=== PATIENT | female | born 1985 | race Caucasian/White ===

== ENCOUNTER 2018-10-03 12:10 | Emergency (ER) | payer SELFPAY ==
--- NOTE | 2018-10-03 13:07 | EDPHYS ---
Physician Documentation [facility] Name: Jason Garcia Age: 33 yrs Sex: Female : 1985 Arrival Date: 10/03/2018 Time: 12:12 Bed 8 Private MD: ED Physician Sony Larios HPI: 10/03 12:57 This 33 yrs old Female presents to ER via Ambulatory with complaints of kdr Rash/Lesions. 12:57 The patient's rash thought to be caused by Dermatitis an unknown cause. The rash is kdr located on the occipital area, base of the skull, chest, right axilla and left axilla. The rash can be described as crusted, macular, papular. Onset: The symptoms/episode began/occurred gradually, 2 week(s) ago. Associated signs and symptoms: Pertinent positives: None. Pertinent negatives: burning sensation, difficulty breathing, fever, itching, nausea, Pain swelling of lips, swelling of throat, swelling of tongue, vomiting. Severity of symptoms: At their worst the symptoms were mild in the emergency department the symptoms are unchanged. The patient has not experienced similar symptoms in the past. The patient has not recently seen a physician. 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 - Social history:: Smoking status: unknown. - Ebola Screening: : No symptoms or risks identified at this time. ROS: 12:57 Constitutional: Negative for fever, chills, and weight loss, Eyes: Negative for injury, kdr pain, redness, and discharge, Neck: Negative for injury, pain, and swelling, Cardiovascular: Negative for chest pain, palpitations, and edema, Respiratory: Negative for shortness of breath, cough, wheezing, and pleuritic chest pain. 12:57 Skin: Positive for The patient has multiple lesions to posterior scalp and bilateral axilla. Since she got out of group home. She has no other issues or c/o. Exam: 12:57 Skin: Appearance: normal except for affected area, Color: pink, abscess, that is small, kdr multiple small lesions to posterior scalp.. 16:18 Constitutional: This is a well developed, well nourished patient who is awake, alert, kdr and in no acute distress. Head/Face: Normocephalic, atraumatic. Vital Signs: 12:13 BP 136 / 80; Pulse 100; Resp 16; Temp 98.2; Pulse Ox 97% on R/A; Weight 54.43 kg; aj Height 4 ft. 11 in. (149.86 cm); 12:13 Body Mass Index 24.24 (54.43 kg, 149.86 cm) MDM: 12:57 Data reviewed: vital signs, nurses notes. Counseling: I had a detailed discussion with kdr the patient and/or guardian regarding: the historical points, exam findings, and any diagnostic results supporting the discharge/admit diagnosis, the need for outpatient follow up. 13:06 Patient medically screened. kdr Administered Medications: No medications were administered Disposition: 10/03/18 13:06 Discharged to Home. Impression: Cellulitis of neck, Scalp cellulitis. - Condition is Stable. - Discharge Instructions: Cellulitis, Adult, [id number], MRSA FAQs - MIRZA. - Prescriptions for Keflex 500 mg Oral Capsule - take 1 capsule by ORAL route every 6 hours for 10 days; 40 capsule. - Medication Reconciliation Form, Thank You Letter, Antibiotic Education, Work release form form. - Follow up: Private Physician; When: 2 - 3 days; Reason: If symptoms return, Further diagnostic work-up, Recheck today's complaints, Continuance of care, Re-evaluation by your physician. - Problem is new. - Symptoms are unchanged. - Notes: Use bacterialcidal soap and shampoo until resovlved Signatures: Jillian Butcher RN RN sv Myers, Amanda RN Sony Jacobs MD MD kdr Corrections: (The following items were deleted from the chart) 13:30 13:06 10/03/2018 13:06 Discharged to Home. Impression: Cellulitis of neck; Scalp sv cellulitis. Condition is Stable. Forms are Medication Reconciliation Form, Thank You Letter, Antibiotic Education, Prescription Opioid Use. Follow up: Private Physician; When: 2 - 3 days; Reason: If symptoms return, Further diagnostic work-up, Recheck today's complaints, Continuance of care, Re-evaluation by your physician. Problem is new. Symptoms are unchanged. kdr
--- NOTE | 2018-10-03 13:07 | ER ---
Nurse's Notes [facility] Name: Jason Garcia Age: 33 yrs Sex: Female : 1985 Arrival Date: 10/03/2018 Time: 12:12 Bed 8 Private MD: Diagnosis: Cellulitis of neck;Scalp cellulitis Presentation: 10/03 12:12 Care prior to arrival: None. aj 12:12 Acuity: MONICA 4 aj 12:13 Presenting complaint: Patient states: Abscesses to right axilla and rear hairline. Also aj reports neck pain that is chronic. 12:13 Method Of Arrival: Ambulatory aj 13:27 Transition of care: patient was not received from another setting of care. Risk sv Assessment: Do you want to hurt yourself or someone else? Patient reports no desire to harm self or others. Initial Sepsis Screen: Does the patient meet any 2 criteria? HR > 90 bpm. No. Patient's initial sepsis screen is negative. Does the patient have a suspected source of infection? Yes: Skin breakdown/wound. 13:27 Onset of symptoms was September 2018. sv Triage Assessment: 12:13 General: Appears in no apparent distress. comfortable, Behavior is calm, cooperative, aj appropriate for age. Pain: Denies pain. 12:13 Derm: Abscess located on base of the skull and right axilla. Musculoskeletal: aj Circulation, motion, and sensation intact. Reports pain in back of neck. 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 - Social history:: Smoking status: unknown. - Ebola Screening: : No symptoms or risks identified at this time. Screenin:27 Abuse screen: Denies threats or abuse. Denies injuries from another. Nutritional sv screening: No deficits noted. Tuberculosis screening: No symptoms or risk factors identified. Fall Risk None identified. Assessment: 13:29 General: Appears in no apparent distress. uncomfortable, Behavior is calm. Pain: Denies sv pain. Neuro: Level of Consciousness is awake, alert, obeys commands, Oriented to person, place, time, situation, Gait is steady. Respiratory: Respiratory effort is even, unlabored, Respiratory pattern is regular, symmetrical. Derm: Skin is pink, warm \T\ dry. Abscess located on chest and left axilla and occipital area and back of neck and right arm and right axilla and base of the skull is red, is raised. Vital Signs: 12:13 BP 136 / 80; Pulse 100; Resp 16; Temp 98.2; Pulse Ox 97% on R/A; Weight 54.43 kg; aj Height 4 ft. 11 in. (149.86 cm); 12:13 Body Mass Index 24.24 (54.43 kg, 149.86 cm) aj ED Course: 12:12 Patient arrived in ED. as 12:12 Triage completed. aj 12:13 Arm band placed on left wrist. Patient placed in waiting room, Patient notified of wait aj time. 12:36 Sony Larios MD is Attending Physician. kdr 13:26 Jillian Butcher RN is Primary Nurse. sv 13:26 No provider procedures requiring assistance completed. Patient did not have IV access sv during this emergency room visit. 13:28 Patient has correct armband on for positive identification. sv Administered Medications: No medications were administered Outcome: 13:06 Discharge ordered by . kdr 13:26 Discharged to home ambulatory. sv 13:26 Condition: stable 13:26 Discharge instructions given to patient, Instructed on follow up and referral plans. medication usage, wound care, Demonstrated understanding of instructions, follow-up care, medications, wound care, Prescriptions given X 1. 13:30 Patient left the ED. sv Signatures: Jillian Butcher, Ebony Hardin RN, RN RN aj Rittger, Kevin, MD MD kdr Martinez, Amelia as Corrections: (The following items were deleted from the chart) 12:16 12:13 Derm: Reports rash aj
== END 2018-10-03 13:30 | disposition home or self-care (01) ==
LOC: ER 12:10
DX: L03.221 Cellulitis of neck (principal); L03.811 Cellulitis of head [any part, except face]
CPT/HCPCS: 99282

== ENCOUNTER 2022-10-17 14:49 | Emergency (ER) | payer SELFPAY ==
[2022-10-17] MEDS ORDERED: DIAZEPAM 5 MG TABLET ONE (16:16)
[2022-10-17 16:17] LABS: Specific Gravity > 1.030 (1.005-1.030)
[2022-10-17] MEDS ORDERED: ONDANSETRON 4 MG/2 ML VIAL ONE (16:17)
[2022-10-17] MEDS ORDERED: FENTANYL CITR 100 MCG/2 ML ONE (16:17)
[2022-10-17] MEDS ORDERED: dexAMETHasone 10 MG/ML VIAL ONE (16:17)
[2022-10-17] MEDS ORDERED: KETOROLAC 30 MG/ML INJ ONE (16:17)
[2022-10-17 16:19] LABS: Specific Gravity > 1.030 (1.005-1.030); Urine Bacteria <20 /HPF (<20); Urine Bilirubin NEGATIVE (Negative); Urine Blood Negative (Negative); Urine Clarity Turbid (Clear); Urine Color Yellow (Yellow); Urine Crystals Unidentified Few /HPF (None Seen); Urine Glucose NEGATIVE (Negative); Urine Mucus 3+ /HPF (None Seen); Urine Protein 1+ (Negative); Urine RBC <5 /HPF (None Seen); Urine Urobilinogen Normal (Normal); Urine WBC Clump Rare /HPF (None Seen)
[2022-10-17 16:25] LABS: Barbiturates NEGATIVE (NEGATIVE); Benzodiazepines NEGATIVE (NEGATIVE); Cocaine NEGATIVE (NEGATIVE); METHAMPHETAM POSITIVE (NEGATIVE); Methadone NEGATIVE (NEGATIVE); Opiates NEGATIVE (NEGATIVE); Phencyclidine NEGATIVE (NEGATIVE); THC Cannibis POSITIVE (NEGATIVE)
--- NOTE | 2022-10-17 16:29 | RAD REPORT ---
EXAM DESCRIPTION: CT - C Spine Wo Con - 10/17/2022 4:06 pm CLINICAL HISTORY: PAIN COMPARISON: HEAD BRAIN W O CONTRAST dated 11/28/2014 TECHNIQUE: CT Scan was obtained of the cervical spine without contrast. Reformats were provided in t he sagittal and coronal plane. FINDINGS: Motion limited. Reversal of the normal cervical lordosis. This is probably chronic. Severe degenerative changes are present at C2-3. Anterolisthesis of C3 on C4 and C4 on C5 noted .. Disc hei ght loss also present at C5-6 with uncovertebral joint hypertrophy. No acute soft tissue abnormality identified. IMPRESSION: Limited by motion. Reversal of the normal cervical lordosis probably chronic. No evidenc e of acute fracture or traumatic malalignment. Cervical spondylosis is noted.
--- NOTE | 2022-10-17 16:32 | RAD REPORT ---
EXAM DESCRIPTION: RAD - Shoulder Right 2 View - 10/17/2022 4:20 pm CLINICAL HISTORY: PAIN COMPARISON: No comparisons FINDINGS/IMPRESSION: No acute fracture. No malalignment. No significant focal degenerative changes.
--- NOTE | 2022-10-17 16:32 | RAD REPORT ---
EXAM DESCRIPTION: RAD - Chest Pa And Lat (2 Views) - 10/17/2022 4:20 pm CLINICAL HISTORY: PAIN COMPARISON: Chest Single View dated 05/15/2016 FINDINGS: Lines: None. Lungs: No evidence of edema or pneumonia. Pleural: No significant pleural effusions or pneumothorax. Cardiac: The heart size is within normal limits. Mediastinum: Within normal limits. Bones: No acute fractures. Other: None IMPRESSION: No acute cardiopulmonary disease.
[2022-10-17 17:01] LABS: Absolute Lymphocytes (CBC) 2.4 K/uL (0.7-4.9); Hematocrit 30.8 % (36.0-45.0); Lymphocytes % 17.7 % (15.3-44.8); MCV 87.6 fL (80-100); MPV 7.4 fL (7.6-11.3); RBC Red Blood Cell Count 3.52 M/uL (3.86-4.86)
--- NOTE | 2022-10-17 17:07 | EDPHYS ---
Physician Documentation [facility] Name: Jason Garcia Age: 37 yrs Sex: Female : 1985 Arrival Date: 10/17/2022 Time: 14:49 Bed 16 Private MD: ED Physician Richard Escoto HPI: 10/17 15:53 This 37 yrs old Female presents to ER via Ambulatory with complaints of santana Shoulder Pain. 15:53 The patient or guardian complains of decreased range of motion, pain. left shoulder. santana Context: The problem was sustained at an unknown site, resulted from an unknown reason, The patient experiences decreased range of motion. Onset: The symptoms/episode began/occurred 3 day(s) ago. Modifying factors: the symptoms are alleviated by nothing. The symptoms are aggravated by movement. Associated signs and symptoms: Pertinent positives: neck pain. Severity of symptoms: At their worst the symptoms were mild, moderate, in the emergency department the symptoms are unchanged. The patient has experienced similar episodes in the past, several times. Historical: - Allergies: 15:19 No Known Drug Allergies; cm10 - PMHx: 15:19 acute renal failure; Bipolar disorder; cm10 - Immunization history:: Adult Immunizations unknown. - Social history:: Smoking status: Patient denies any tobacco usage or history of. - Family history:: not pertinent. ROS: 15:53 Constitutional: Negative for fever, chills, and weight loss, Eyes: Negative for injury, santana pain, redness, and discharge, ENT: Negative for injury, pain, and discharge, Cardiovascular: Negative for chest pain, palpitations, and edema, Respiratory: Negative for shortness of breath, cough, wheezing, and pleuritic chest pain, Abdomen/GI: Negative for abdominal pain, nausea, vomiting, diarrhea, and constipation, Back: Negative for injury and pain, : Negative for injury, bleeding, discharge, and swelling, Skin: Negative for injury, rash, and discoloration, Neuro: Negative for headache, weakness, numbness, tingling, and seizure, Psych: Negative for depression, anxiety, suicide ideation, homicidal ideation, and hallucinations, Allergy/Immunology: Negative for hives, rash, and allergies, Endocrine: Negative for neck swelling, polydipsia, polyuria, polyphagia, and marked weight changes. 15:53 Neck: Positive for pain with movement, pain at rest, tenderness. 15:53 MS/extremity: Positive for decreased range of motion, pain, of the anterior aspect of right shoulder and posterior aspect of right shoulder. Exam: 15:53 Constitutional: This is a well developed, well nourished patient who is awake, alert, santana and in no acute distress. Head/Face: Normocephalic, atraumatic. Eyes: Pupils equal round and reactive to light, extra-ocular motions intact. Lids and lashes normal. Conjunctiva and sclera are non-icteric and not injected. Cornea within normal limits. Periorbital areas with no swelling, redness, or edema. ENT: Nares patent. No nasal discharge, no septal abnormalities noted. Tympanic membranes are normal and external auditory canals are clear. Oropharynx with no redness, swelling, or masses, exudates, or evidence of obstruction, uvula midline. Mucous membranes moist. Neck: Trachea midline, no thyromegaly or masses palpated, and no cervical lymphadenopathy. Supple, full range of motion without nuchal rigidity, or vertebral point tenderness. No Meningismus. Chest/axilla: Normal chest wall appearance and motion. Nontender with no deformity. No lesions are appreciated. Cardiovascular: Regular rate and rhythm with a normal S1 and S2. No gallops, murmurs, or rubs. Normal PMI, no JVD. No pulse deficits. Respiratory: Lungs have equal breath sounds bilaterally, clear to auscultation and percussion. No rales, rhonchi or wheezes noted. No increased work of breathing, no retractions or nasal flaring. Abdomen/GI: Soft, non-tender, with normal bowel sounds. No distension or tympany. No guarding or rebound. No evidence of tenderness throughout. Back: No spinal tenderness. No costovertebral tenderness. Full range of motion. Skin: Warm, dry with normal turgor. Normal color with no rashes, no lesions, and no evidence of cellulitis. Neuro: Awake and alert, GCS 15, oriented to person, place, time, and situation. Cranial nerves II-XII grossly intact. Motor strength 5/5 in all extremities. Sensory grossly intact. Cerebellar exam normal. Normal gait. Psych: Awake, alert, with orientation to person, place and time. Behavior, mood, and affect are within normal limits. 15:53 Musculoskeletal/extremity: ROM: limited active range of motion due to pain, limited passive range of motion due to pain, Circulation is intact in all extremities. Sensation intact. Compartment Syndrome exam of affected extremity: is normal. DVT Exam: No signs of deep vein thrombosis. no pain, no swelling, no tenderness, negative Homans' sign noted on exam, no appreciated bluish discoloration, no erythema, no increased warmth. Vital Signs: 15:17 BP 192 / 116; Pulse 104; Resp 18; Temp 98.6; Pulse Ox 100% on R/A; Weight 63.5 kg; cm10 Height 4 ft. 11 in. ; Pain 10/10; 15:45 BP 107 / 82; Pulse 83; Resp 16; Pulse Ox 99% ; ko1 16:00 BP 121 / 79; Pulse 87; Resp 18; Pulse Ox 98% ; ko1 16:30 BP 130 / 96; Pulse 84; Resp 22; Pulse Ox 98% ; ko1 17:00 BP 126 / 88; Pulse 89; Resp 18; Pulse Ox 99% ; ko1 15:17 Body Mass Index 28.28 (63.50 kg, 149.86 cm) cm10 15:17 Pain Scale: Adult cm10 MDM: 15:03 Patient medically screened. [facility] 16:03 Differential diagnosis: DJD, tendonitis. Data reviewed: vital signs, nurses notes, lab [facility] test result(s), EKG, radiologic studies, CT scan, plain films. Consideration of Admission/Observation Escalation of care including admission/observation considered. I considered the following discharge prescriptions or medication management in the emergency department Medications were administered in the Emergency Department. See MAR. Test considered but Not performed: Ultrasound no venous doppler . Care significantly affected by the following chronic conditions: arf, bipolar. 10/17 15:53 Order name: CBC with Diff; Complete Time: 17:03 [facility] 10/17 15:53 Order name: Comprehensive Metabolic Panel; Complete Time: 17:42 [facility] 10/17 15:53 Order name: Troponin HS; Complete Time: 17:42 [facility] 10/17 15:53 Order name: Urinalysis w/ reflexes; Complete Time: 17:03 [facility] 10/17 15:53 Order name: PREGU; Complete Time: 17:03 [facility] 10/17 15:53 Order name: UDS; Complete Time: 17:03 10/17 15:53 Order name: CT C Spine; Complete Time: 17:03 [facility] 10/17 15:53 Order name: Chest Pa And Lat (2 Views) XRAY; Complete Time: 17:03 [facility] 10/17 15:53 Order name: Shoulder Right (2 View) XRAY; Complete Time: 17:03 [facility] 10/17 15:53 Order name: EKG; Complete Time: 15:53 [facility] 10/17 15:53 Order name: EKG - Nurse/Tech; Complete Time: 16:43 [facility] 10/17 16:41 Order name: Labs - recollect needed: recollect all please; Complete Time: 16:57 em1 10/17 17:11 Order name: Misc. Order: dc pending comp met; Complete Time: 17:50 [facility] 10/17 17:36 Order name: PO challenge: gatorade; Complete Time: 17:51 [facility] Administered Medications: 16:28 Drug: Ondansetron IVP 4 mg Route: IVP; Site: right antecubital; ko1 16:29 Drug: Ketorolac IVP 15 mg Route: IVP; Site: right antecubital; ko1 16:29 Drug: Decadron - Dexamethasone IVP 10 mg Route: IVP; Site: right antecubital; ko1 16:29 Not Given (Patient Refused): fentaNYL (PF) IVP 50 mcg IVP once ko1 16:29 Drug: Diazepam PO 10 mg Route: PO; ko1 17:28 CANCELLED (Duplicate Order): Norvasc PO 10 mg PO once [facility] 17:50 Drug: Potassium PO Effervescent Tablet 50 mEq Route: PO; ko1 Disposition Summary: 10/17/22 17:07 Discharge Ordered Location: Home santana Problem: new santana Symptoms: have improved santana Condition: Stable santana Diagnosis - Cervical disc disorder with radiculopathy, unspecified cervical region santana - Unspecified symptoms and signs involving the musculoskeletal system santana - Adverse effect of amphetamines, initial encounter santana - Essential (primary) hypertension santana - Hypokalemia santana Followup: santana - With: Private Physician - When: 2 - 3 days - Reason: Recheck today's complaints, Continuance of care, Re-evaluation by your physician Followup: satnana - With: - When: 2 - 3 days - Reason: Recheck today's complaints, Continuance of care, Re-evaluation by your physician Discharge Instructions: - Discharge Summary Sheet santana - Cervical Radiculopathy santana - Potassium Content of Foods santana - Hypertension, Adult santana - Substance Use Disorder santana - Shoulder Pain santana - Shoulder Pain, [id number] santana - Hypertension, Adult, [id number] santana - Methamphetamines Use Disorder santana - How to Take Your Blood Pressure, [id number] santana - Hypokalemia santana - Herniated Disk, Tosv-[id number] santana - Cervical Radiculopathy, [id number]-gn-[id number] santana - Managing Your Hypertension santana - Radicular Pain santana - Substance Use Disorder and Mental Illness santana Forms: - Medication Reconciliation Form santana - Thank You Letter santana - Antibiotic Education santana - Prescription Opioid Use santana - Patient Portal Instructions.htm santana Prescriptions: - dexamethasone 2 mg Oral tablet - take 1 tablet by ORAL route 2 times per day; 8 tablet; Refills: 0, Product santana Selection Permitted - diclofenac sodium 50 mg Oral tablet, delayed release (enteric coated) - take 1 tablet by ORAL route every 12 hours; 20 tablet; Refills: 0, Product santana Selection Permitted - Norvasc 5 mg Oral Tablet - take 1 tablet by ORAL route once daily; 20 tablet; Refills: 0, Product santana Selection Permitted - Potassium Chloride 20 meq Oral Packet - take 1 packet by ORAL route every 12 hours 1 packet in 6 (six) ounces of water santana or juice; Take after meal; 14 packet; Refills: 0, Product Selection Permitted - Cyclobenzaprine 5 mg Oral Tablet - take 1 tablet by ORAL route 3 times per day As needed; 15 tablet; Refills: 0, santana Product Selection Permitted Signatures: Dispatcher [employer] EDRichard Xiong MD MD cha Martinez, Eric em1 Cindy Robbins, RN RN ko1 Aleyda Max RN RN cm10 Corrections: (The following items were deleted from the chart) 17:28 17:03 Norvasc PO 10 mg PO once ordered. santana santana
--- NOTE | 2022-10-17 17:07 | ER ---
Nurse's Notes [facility] Name: Jason Garcia Age: 37 yrs Sex: Female : 1985 Arrival Date: 10/17/2022 Time: 14:49 Bed 16 Private MD: Diagnosis: Cervical disc disorder with radiculopathy, unspecified cervical region;Unspecified symptoms and signs involving the musculoskeletal system;Adverse effect of amphetamines, initial encounter;Essential (primary) hypertension;Hypokalemia Presentation: 10/17 15:17 Chief complaint: Patient states: right shoulder pain X2 days. Pt denies any trauma or cm10 injury. Pt states that the pain first started in her neck. Coronavirus screen: Vaccine status: Patient reports being unvaccinated. Client denies travel out of the [place] in the last 14 days. Ebola Screen: Patient denies travel to an Ebola-affected area in the 21 days before illness onset. No symptoms or risks identified at this time. Initial Sepsis Screen: Does the patient meet any 2 criteria? No. Patient's initial sepsis screen is negative. Does the patient have a suspected source of infection? No. Patient's initial sepsis screen is negative. Risk Assessment: Do you want to hurt yourself or someone else? Patient reports no desire to harm self or others. Onset of symptoms was October 15, 2022. 15:17 Method Of Arrival: Ambulatory cm10 15:17 Acuity: MONICA 4 cm10 Historical: - Allergies: 15:19 No Known Drug Allergies; cm10 - PMHx: 15:19 acute renal failure; Bipolar disorder; cm10 - Immunization history:: Adult Immunizations unknown. - Social history:: Smoking status: Patient denies any tobacco usage or history of. - Family history:: not pertinent. Screenin:00 [facility] ED Fall Risk Assessment (Adult) History of falling in the last 3 months, ko1 including since admission No falls in past 3 months (0 pts) Confusion or Disorientation No (0 pts) Intoxicated or Sedated No (0 pts) Impaired Gait No (0 pts) Mobility Assist Device Used No (0 pt) Altered Elimination No (0 pt) Score/Fall Risk Level 0 - 2 = Low Risk Oriented to surroundings, Maintained a safe environment, Educated pt \T\ family on fall prevention, incl call for assistance when getting out of bed, Assessed \T\ reinforced patient's understanding of fall precautions, Provided non-skid footwear, Hourly rounding (assess needs \T\ fall precautionary measures) done, Used ambulatory aids as needed (educated on \T\ assisted with), Used gait belt as appropriate. Abuse screen: Denies threats or abuse. Denies injuries from another. Nutritional screening: No deficits noted. Tuberculosis screening: No symptoms or risk factors identified. Assessment: 15:45 General: Appears in no apparent distress. uncomfortable, Behavior is cooperative, ko1 anxious, restless. Pain: Complains of pain in right arm and posterior aspect of right shoulder and anterior aspect of right shoulder and left shoulder. Neuro: No deficits noted. Cardiovascular: No deficits noted. Respiratory: No deficits noted. GI: No deficits noted. : No deficits noted. EENT: No deficits noted. Derm: No deficits noted. Musculoskeletal: Reports pain in right arm and posterior aspect of right shoulder and anterior aspect of right shoulder and left shoulder. Vital Signs: 15:17 BP 192 / 116; Pulse 104; Resp 18; Temp 98.6; Pulse Ox 100% on R/A; Weight 63.5 kg; cm10 Height 4 ft. 11 in. ; Pain 10/10; 15:45 BP 107 / 82; Pulse 83; Resp 16; Pulse Ox 99% ; ko1 16:00 BP 121 / 79; Pulse 87; Resp 18; Pulse Ox 98% ; ko1 16:30 BP 130 / 96; Pulse 84; Resp 22; Pulse Ox 98% ; ko1 17:00 BP 126 / 88; Pulse 89; Resp 18; Pulse Ox 99% ; ko1 15:17 Body Mass Index 28.28 (63.50 kg, 149.86 cm) cm10 15:17 Pain Scale: Adult cm10 ED Course: 14:50 Patient arrived in ED. rg4 15:03 Richard Escoto MD is Attending Physician. santana 15:19 Triage completed. cm10 15:20 Arm band placed on Patient placed in waiting room. cm10 15:24 Cindy Robbins, JESSE is Primary Nurse. ko1 16:05 UDS Sent. ko1 16:05 PREGU Sent. ko1 16:05 Urinalysis w/ reflexes Sent. ko1 16:07 CT C Spine In Process Unspecified. EDMS 16:15 Inserted saline lock: 20 gauge in right antecubital area, using aseptic technique. ko1 Blood collected. 16:22 Chest Pa And Lat (2 Views) XRAY In Process Unspecified. EDMS 16:22 Shoulder Right (2 View) XRAY In Process Unspecified. EDMS 16:28 Troponin HS Sent. ko1 16:28 Comprehensive Metabolic Panel Sent. ko1 16:28 CBC with Diff Sent. ko1 17:00 Patient has correct armband on for positive identification. Bed in low position. Call ko1 light in reach. Side rails up X 1. Provided Education on: labs/meds. Client placed on continuous cardiac and pulse oximetry monitoring. NIBP monitoring applied. groundwater monitoring technician on. Door closed. Noise minimized. Lights dimmed. Warm blanket given. 17:00 No provider procedures requiring assistance completed. ko1 17:06 Dominguez Bazan MD is Referral Physician. santana 18:08 IV discontinued, intact, bleeding controlled, No redness/swelling at site. Pressure ko1 dressing applied. Administered Medications: 16:28 Drug: Ondansetron IVP 4 mg Route: IVP; Site: right antecubital; ko1 16:29 Drug: Ketorolac IVP 15 mg Route: IVP; Site: right antecubital; ko1 16:29 Drug: Decadron - Dexamethasone IVP 10 mg Route: IVP; Site: right antecubital; ko1 16:29 Not Given (Patient Refused): fentaNYL (PF) IVP 50 mcg IVP once ko1 16:29 Drug: Diazepam PO 10 mg Route: PO; ko1 17:28 CANCELLED (Duplicate Order): Norvasc PO 10 mg PO once santana 17:50 Drug: Potassium PO Effervescent Tablet 50 mEq Route: PO; ko1 Medication: 17:00 VIS not applicable for this client. ko1 Outcome: 17:07 Discharge ordered by . santana 18:08 Discharged to home ambulatory. ko1 18:08 Condition: improved 18:08 Discharge instructions given to patient, Instructed on discharge instructions, follow up and referral plans. medication usage, Demonstrated understanding of instructions, follow-up care, medications, Prescriptions given X x5 18:12 Patient left the ED. ko1 Signatures: Dispatcher [employer] Richard Lantigua MD MD cha Garcia, Rubi rg4 Cindy Robbins RN RN ko1 Mansoor, Aleyda, RN RN cm10
[2022-10-17 17:35] LABS: Albumin 3.3 g/dL (3.4-5.0); Bilirubin Total 0.4 mg/dL (0.2-1.0); Potassium 2.8 mEq/L (3.5-5.1); Protein, Total 6.7 g/dL (6.4-8.2); Troponin High Sensitivity 4.3 pg/mL (<58.9)
[2022-10-17] MEDS ORDERED: POTASSIUM 25 MEQ EFFERV TAB ONE (17:55)
[2022-10-17 19:06] VITALS: TEMP 98.6
[2022-10-17 19:14] VITALS: BP 126/88; O2SAT 99
[2022-10-17] MEDS ORDERED: PANTOPRAZOLE 40 MG INJ ONE (19:33)
[2022-10-17] MEDS ORDERED: NA CHLORIDE 0.9% 250 ML ONE (19:33)
--- NOTE | 2022-10-18 20:24 | EKG ---
Test Date: 2022-10-17 Test Time: 16:39:50 Commercial Underwriter: GLADYS MEASUREMENT RESULTS: Intervals: Rate: 91 PA: 152 QRSD: 78 QT: 382 QTc: 469 Whick: P: 44 PA: 152 QRS: 72 T: 36 INTERPRETIVE STATEMENTS: Normal sinus rhythm Normal ECG Compared to ECG 08/17/2014 22:54:52 No significant changes Electronically Signed On 10-18-22 20:21:53 CDT by Remi Thomas
== END 2022-10-17 18:12 | disposition home or self-care (01) ==
LOC: ER 14:49
DX: M50.10 Cervical disc disorder with radiculopathy, unspecified cervical region (principal); R29.91 Unspecified symptoms and signs involving the musculoskeletal system; E87.6 Hypokalemia; I10 Essential (primary) hypertension; T43.625A Adverse effect of amphetamines, initial encounter
CPT/HCPCS: 36415; 71046; 72125; 80053; 80307; 81001; 81025; 84484; 85025; 93005; 96374; 96375; 99285; C9113; J1100; J2405; J3010; J7050

== ENCOUNTER 2023-12-07 07:08 | Emergency (ER) | payer OTHER ==
[2023-12-07] MEDS ORDERED: MORPHINE 4 MG/ML SYR ONE (07:42)
[2023-12-07] MEDS ORDERED: ONDANSETRON 4 MG/2 ML VIAL ONE (07:42)
[2023-12-07] MEDS ORDERED: NA CHLORIDE 0.9% 1,000 ML ONE (07:43)
[2023-12-07 07:55] LABS: Absolute Basophils 0.1 K/uL (0-0.5); Absolute Eosinophils 0.3 K/uL (0-0.5); Absolute Lymphocytes (CBC) 1.7 K/uL (0.7-4.9); Absolute Monocytes 0.8 K/uL (0.1-1.3); Absolute Neutrophil 10.2 K/uL (1.8-8.0); Basophils % 0.5 % (0-1.3); Eosinophils % 2.2 % (0-4.4); Hematocrit 34.4 % (36.0-45.0); Hemoglobin 11.2 g/dL (12.0-15.0); Lymphocytes % 12.7 % (15.3-44.8); MCH 27.5 pg (27.0-35.0); MCHC 32.6 g/dL (32.0-36.0); MCV 84.4 fL (80-100); MPV 7.1 fL (7.6-11.3); Monocytes % 5.9 % (3.3-12.3); Neutrophils % 78.7 % (41.7-73.7); Platelets 436 thou/uL (152-406); RBC Red Blood Cell Count 4.07 M/uL (3.86-4.86)
[2023-12-07 08:13] LABS: ALT/SGPT 28 U/L (13-56); AST/SGOT 19 U/L (15-37); Albumin 3.2 g/dL (3.4-5.0); Albumin/Globulin Ratio 0.9 (1.1-1.8); Alkaline Phosphatase 53 U/L (45-117); Anion Gap 7.5 mEq/L (5.0-15.0); BUN Blood Urea Nitrogen 14 mg/dL (7-18); Bicarbonate 27 mEq/L (21-32); Globulin 3.5 g/dL (2.3-3.5); Glomerular Filtration Rate 107 ml/min (=/>90); Glucose Level 117 mg/dL (74-106); Lipase 46 U/L (13-75); Potassium 3.5 mEq/L (3.5-5.1); Protein, Total 6.7 g/dL (6.4-8.2); Sodium Level 137 mEq/L (136-145)
[2023-12-07 08:17] LABS: Bilirubin Total < 0.2 mg/dL (0.2-1.0)
[2023-12-07 08:21] LABS: Specific Gravity 1.019 (1.005-1.030)
[2023-12-07 08:25] LABS: Specific Gravity 1.019 (1.005-1.030); Sqamous Epithelial <5 /HPF (None Seen); Urine Bacteria None Seen /HPF (<20); Urine Bilirubin NEGATIVE (Negative); Urine Blood Negative (Negative); Urine Clarity Turbid (Clear); Urine Color Light-Yellow (Yellow); Urine Culture Reflex Order NOT NEEDED; Urine Glucose NEGATIVE (Negative); Urine Ketones NEGATIVE (Negative); Urine Microscopic Reflex YN ORDER UMIC; Urine Mucus Slight /HPF (None Seen); Urine Nitrite NEGATIVE (Negative); Urine Protein NEGATIVE (Negative); Urine RBC <5 /HPF (None Seen); Urine Urobilinogen Normal (Normal); Urine WBC <5 /HPF (<5); Urine pH 6.5 (5.0-7.0)
--- NOTE | 2023-12-07 08:52 | RAD REPORT ---
EXAM DESCRIPTION: CTAbdomen Pelvis W Contrast - 12/07/2023 8:35 am CLINICAL HISTORY: Abdominal pain. ABD PAIN COMPARISON: No comparisons TECHNIQUE: Venous phase CT imaging of the abdomen and pelvis was performed with 100 ml non-ionic IV contrast. All CT scans are performed using dose optimization technique as appropriate and may include automated exposure control or mA/KV adjustment according to patient size. FINDINGS: The lung bases are clear.Gastric distention with fluid is present. The liver, spleen, pancreas, adrenal glands and kidneys are within normal limits. No bowel obstruction, free air, intra-abdominal free fluid or abscess. Moderate stool is present thro ughout the colon. The appendix is normal. No evidence of significant lymphadenopathy. Mild pelvic free fluid is evident. Mild anterolisthesis of L5 on S1 with bilateral spondylolysis. IMPRESSION: No acute intra-abdominal or pelvic finding. Moderate stool is present throughout the colon. Mild pelvic free fluid.
[2023-12-07] MEDS ORDERED: DIPHENHYDRAMINE 50 MG/ML VIAL ONE (09:41)
[2023-12-07] MEDS ORDERED: METOCLOPRAMIDE 10 MG/2mL INJ ONE (09:41)
[2023-12-07] MEDS ORDERED: KETOROLAC 30 MG/ML INJ ONE (09:41)
--- NOTE | 2023-12-07 10:53 | RAD REPORT ---
EXAM DESCRIPTION: US - Transvaginal Study Probe - 12/07/2023 10:20 am CLINICAL HISTORY: ABD PAIN Pelvic pain. COMPARISON: TRANSVAGINAL STUDY PROBE dated 11/28/2014 FINDINGS: The uterus is normal in size, shape and echotexture. The uterus measures 8.8 x 4.6 x 4.9 c m. The endometrial stripe measures 13 mm, mildly thickened. Both ovaries are normal in size, shape and echotexture. The right ovary measures 2.5 x 2.3 x 1.5 cm. The left ovary measures 2.4 x 2.2 x 1.7 cm. No ovarian or parovarian lesions. No adnexal masses. Normal Doppler blood flow was demonstrated to both ovaries. No significant pelvic ascites. IMPRESSION: No acute or worrisome abnormality is seen.
--- NOTE | 2023-12-07 11:23 | EDPHYS ---
Physician Documentation [facility] Name: Jason Garcia Age: 38 yrs Sex: Female : 1985 Arrival Date: 12/07/2023 Time: 07:08 Bed 7 Private MD: ED Physician Vinny Mata HPI: 12/06 07:34 This 38 yrs old Female presents to ER via Ambulatory with complaints of severe stomach rt pain. 07:34 Patient presents to the ED with a lower abdominal pain starting overnight. Reports rt nausea without vomiting. Denies previous symptoms, denies other acute complaints, symptoms are moderate in severity, no other aggravating or alleviating factors.. Historical: - Allergies: 07:21 No Known Allergies; aa5 - PMHx: 07:21 acute renal failure; Bipolar disorder; aa5 - PSHx: 07:21 None; aa5 - Immunization history:: Adult Immunizations unknown. - Infectious Disease History:: Denies. - Social history:: Smoking status: Patient reports the use of cigarette tobacco products. - Family history:: not pertinent. ROS: 07:34 Constitutional: Negative for fever, chills, and weight loss, Cardiovascular: Negative rt for chest pain, palpitations, and edema, Respiratory: Negative for shortness of breath, cough, wheezing, and pleuritic chest pain, MS/Extremity: Negative for injury and deformity, Skin: Negative for injury, rash, and discoloration, Neuro: Negative for headache, weakness, numbness, tingling, and seizure, 07:34 Abdomen/GI: Positive for abdominal pain, nausea, Exam: 07:34 Constitutional: This is a well developed, well nourished patient who is awake, alert, rt and in no acute distress. Head/Face: Normocephalic, atraumatic. Chest/axilla: Normal chest wall appearance and motion. Nontender with no deformity. No lesions are appreciated. Cardiovascular: Regular rate and rhythm with a normal S1 and S2. No gallops, murmurs, or rubs. Normal PMI, no JVD. No pulse deficits. Respiratory: Lungs have equal breath sounds bilaterally, clear to auscultation and percussion. No rales, rhonchi or wheezes noted. No increased work of breathing, no retractions or nasal flaring. Skin: Warm, dry with normal turgor. Normal color with no rashes, no lesions, and no evidence of cellulitis. MS/ Extremity: Pulses equal, no cyanosis. Neurovascular intact. Full, normal range of motion. Neuro: Awake and alert, GCS 15, oriented to person, place, time, and situation. Cranial nerves II-XII grossly intact. Motor strength 5/5 in all extremities. Sensory grossly intact. Cerebellar exam normal. Normal gait. 07:34 Abdomen/GI: Tenderness to the lower quadrants with mild guarding, no rebound, distention, Vital Signs: 07:19 BP 147 / 106; Pulse 84; Resp 20 S; Temp 98.3(O); Pulse Ox 97% on R/A; Weight 45.36 kg aa5 (R); Height 4 ft. 11 in. (R); 08:30 BP 131 / 80; Pulse 72; Resp 18 S; Pulse Ox 96% on R/A; aa5 07:19 Body Mass Index 20.20 (45.36 kg, 149.86 cm) aa5 MDM: 07:23 Patient medically screened. rt 11:30 Differential Diagnosis Appendicitis, cystitis, kidney stone, ovarian torsion, TOA, rt gastroparesis, gastritis, constipation. Data reviewed: vital signs, nurses notes, lab test result(s), radiologic studies. I considered the following discharge prescriptions or medication management in the emergency department Medications were administered in the Emergency Department. See MAR. Independent interpretation of the following test(s) in the Emergency Department CT Scan: My interpretation is No bowel obstruction syndrome interpretation of CT scan. Counseling: I had a detailed discussion with the patient and/or guardian regarding the historical points, exam findings, and any diagnostic results supporting the discharge/admit diagnosis, lab results, radiology results, the need for outpatient follow up, to return to the emergency department if symptoms worsen or persist or if there are any questions or concerns that arise at home. Response to treatment: the patient's symptoms have markedly improved after treatment. 12/06 07:27 Order name: CBC with Diff; Complete Time: 08: rt 12/06 07:27 Order name: CMP; Complete Time: : rt 12/06 07:27 Order name: Lipase; Complete Time: : rt 12/06 07:27 Order name: Test, Urine; Complete Time: : rt 12/06 07:27 Order name: Urinalysis w/ reflexes; Complete Time: 08:28 rt 12/06 07:27 Order name: CT Abd/Pelvis - IV Contrast Only rt 12/06 09:26 Order name: Transvaginal Study Probe EDMS 12/06 07:27 Order name: IV Saline Lock; Complete Time: 07:38 rt 12/06 07:27 Order name: Labs collected and sent; Complete Time: 07:38 rt Administered Medications: 07:45 Drug: NS 0.9% IV 1000 ml IV at 1 bolus Per protocol; 1000 mL bolus Route: IV; Rate: 1 aa5 bolus; Site: right antecubital; 09:00 Follow up: IV Status: Completed infusion; IV Intake: 1000ml aa5 07:45 Drug: Ondansetron IVP 4 mg IVP once; over 2 minutes Route: IVP; Site: right antecubital;aa5 08:00 Follow up: Response: No adverse reaction aa5 07:45 Drug: morphine IVP or IV 4 mg IVP once over 4 mins Route: IVP; Infused Over: 4 mins; aa5 Site: right antecubital; 08:00 Follow up: Response: No adverse reaction aa5 10:39 Drug: Ketorolac IVP 15 mg IVP once Route: IVP; Site: right antecubital; aa5 11:05 Follow up: Response: No adverse reaction db 10:39 Drug: metoCLOPramide IVP 10 mg IVP once; over 1 to 2 minutes Route: IVP; Site: right aa5 antecubital; 11:05 Follow up: Response: No adverse reaction db 10:39 Drug: diphenhydrAMINE IVP 25 mg IVP once Route: IVP; Site: right antecubital; aa5 11:05 Follow up: Response: No adverse reaction db Disposition Summary: 12/07/23 11:23 Discharge Ordered Notes: Location: Home rt Problem: new rt Symptoms: have improved rt Condition: Stable rt Diagnosis - Other abdominal pain rt Followup: rt - With: Ghulam Peacock MD - When: 2 - 3 days - Reason: Discharge Instructions: - Discharge Summary Sheet rt - Abdominal Pain, Adult rt Forms: - Medication Reconciliation Form rt - Antibiotic Education rt - Prescription Opioid Use rt - Patient Portal Instructions rt - Leadership Thank You Letter rt Prescriptions: - dicyclomine 10 mg Oral capsule - take 1 capsule ORAL route 3 times per day as needed; 30 capsule; Refills: 0, rt Product Selection Permitted Signatures: Dispatcher [employer] Maria Victoria Macias, RN RN aa5 Vinny Mata MD MD rt Debora Unger RN db Corrections: (The following items were deleted from the chart) 09:09 09:09 Pelvis Complete+US.RAD.BRZ ordered. EDMS EDMS
--- NOTE | 2023-12-07 11:23 | ER ---
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 Pt reports nausea, denies vomiting, denies diarrhea. Coronavirus screen: nausea. Ebola Screen: Patient denies travel to an Ebola-affected area in the 21 days before illness onset. Initial Sepsis Screen: Does the patient meet any 2 criteria? No. Patient's initial sepsis screen is negative. Does the patient have a suspected source of infection? No. Patient's initial sepsis screen is negative. Risk Assessment: Do you want to hurt yourself or someone else? Patient reports no desire to harm self or others. Onset of symptoms was December 07, 2023. 07:19 Method Of Arrival: Ambulatory aa5 07:19 Acuity: MONICA 3 aa5 Historical: - Allergies: 07:21 No Known Allergies; aa5 - PMHx: 07:21 acute renal failure; Bipolar disorder; aa5 - PSHx: 07:21 None; aa5 - Immunization history:: Adult Immunizations unknown. - Infectious Disease History:: Denies. - Social history:: Smoking status: Patient reports the use of cigarette tobacco products. - Family history:: not pertinent. Screenin:30 [facility] ED Fall Risk Assessment (Adult) History of falling in the last 3 months, aa5 including since admission No falls in past 3 months (0 pts) Confusion or Disorientation No (0 pts) Intoxicated or Sedated No (0 pts) Impaired Gait No (0 pts) Mobility Assist Device Used No (0 pt) Altered Elimination No (0 pt) Score/Fall Risk Level 0 - 2 = Low Risk Oriented to surroundings, Maintained a safe environment, Educated pt \T\ family on fall prevention, incl call for assistance when getting out of bed. Abuse screen: Denies threats or abuse. Nutritional screening: No deficits noted. Tuberculosis screening: No symptoms or risk factors identified. Assessment: 07:19 General: Appears uncomfortable, Behavior is calm, cooperative. Pain: Complains of pain aa5 in umbilical area, right lower quadrant and left lower quadrant Pain currently is 8 out of 10 on a pain scale. Quality of pain is described as sharp, shooting, Pain began 2 hours ago. Is continuous. Neuro: Level of Consciousness is awake, alert, obeys commands, Oriented to person, place, time, situation. Cardiovascular: Patient's skin is warm and dry. Respiratory: Airway is patent Respiratory effort is even, unlabored, Respiratory pattern is regular, symmetrical. GI: Abdomen is round non-distended, Last BM was December 06, 2023. Bowel sounds present X 4 quads. Abd is soft and non tender X 4 quads. Reports nausea, Patient currently denies diarrhea, vomiting. : No signs and/or symptoms were reported regarding the genitourinary system. EENT: poor dentition noted . Derm: Skin is pink, warm \T\ dry. Musculoskeletal: Range of motion: intact in all extremities. 07:28 Reassessment: It was noted that pt had pocket knife, pocket knife was removed and given aa5 to pt's family in the waiting room per pt's request, pt's family member was told to place knife in the car before visiting pt in ER room 7, verbalized understanding. . 08:14 Reassessment: Patient is alert, oriented x 3, equal unlabored respirations, skin aa5 warm/dry/pink. Pt assisted with urine specimen collection, reports pain has not improved, MD notified. . 08:20 Reassessment: Pt now resting in bed with eyes closed, appears comfortable. . aa5 09:00 Reassessment: Patient is alert, oriented x 3, equal unlabored respirations, skin aa5 warm/dry/pink. Patient states feeling better. 09:45 Reassessment: Pt to radiology via stretcher . aa5 10:08 Reassessment: Pt remains in radiology . aa5 10:35 Reassessment: Patient is alert, oriented x 3, equal unlabored respirations, skin aa5 warm/dry/pink. Pt back from radiology . 11:45 Reassessment: Patient appears in no apparent distress at this time. Patient and/or db family updated on plan of care and expected duration. Pain level reassessed. Patient is alert, oriented x 3, equal unlabored respirations, skin warm/dry/pink. Patient states feeling better. Patient states symptoms have improved. Vital Signs: 07:19 BP 147 / 106; Pulse 84; Resp 20 S; Temp 98.3(O); Pulse Ox 97% on R/A; Weight 45.36 kg aa5 (R); Height 4 ft. 11 in. (R); 08:30 BP 131 / 80; Pulse 72; Resp 18 S; Pulse Ox 96% on R/A; aa5 07:19 Body Mass Index 20.20 (45.36 kg, 149.86 cm) aa5 ED Course: 07:10 Patient arrived in ED. ra3 07:14 Vinny Mata MD is Attending Physician. rt 07:19 Arm band placed on. aa5 07:19 Patient has correct armband on for positive identification. Placed in gown. Bed in low aa5 position. Call light in reach. Side rails up X 1. Pulse ox on. NIBP on. 07:20 Triage completed. aa5 07:31 CHELSEA CANO, RN is Primary Nurse. dd2 07:38 CBC with Diff Sent. dd2 07:38 CMP Sent. dd2 07:38 Lipase Sent. dd2 07:39 Initial lab(s) drawn, by me, sent to lab. Inserted saline lock: 20 gauge in right dd2 antecubital area, using aseptic technique. Blood collected. Flushed with 10 mL NS. 08:16 Urine collected: clean catch specimen, sent to lab. aa5 08:37 CT Abd/Pelvis - IV Contrast Only In Process Unspecified. EDMS 10:09 Transvaginal Study Probe In Process Unspecified. EDMS 11:22 Ghulam Peacock MD is Referral Physician. rt 11:45 Provided Education on: DISCHARGE AND FOLLOWUP. db 11:45 No provider procedures requiring assistance completed. IV discontinued, intact, db bleeding controlled, No redness/swelling at site. Administered Medications: 07:45 Drug: NS 0.9% IV 1000 ml IV at 1 bolus Per protocol; 1000 mL bolus Route: IV; Rate: 1 aa5 bolus; Site: right antecubital; 09:00 Follow up: IV Status: Completed infusion; IV Intake: 1000ml aa5 07:45 Drug: Ondansetron IVP 4 mg IVP once; over 2 minutes Route: IVP; Site: right antecubital;aa5 08:00 Follow up: Response: No adverse reaction aa5 07:45 Drug: morphine IVP or IV 4 mg IVP once over 4 mins Route: IVP; Infused Over: 4 mins; aa5 Site: right antecubital; 08:00 Follow up: Response: No adverse reaction aa5 10:39 Drug: Ketorolac IVP 15 mg IVP once Route: IVP; Site: right antecubital; aa5 11:05 Follow up: Response: No adverse reaction db 10:39 Drug: metoCLOPramide IVP 10 mg IVP once; over 1 to 2 minutes Route: IVP; Site: right aa5 antecubital; 11:05 Follow up: Response: No adverse reaction db 10:39 Drug: diphenhydrAMINE IVP 25 mg IVP once Route: IVP; Site: right antecubital; aa5 11:05 Follow up: Response: No adverse reaction db Medication: 08:38 VIS not applicable for this client. aa5 Intake: 09:00 IV: 1000ml; Total: 1000ml. aa5 Outcome: 11:23 Discharge ordered by MD. rt 11:45 Discharged to home ambulatory, db 11:45 Condition: stable 11:45 Discharge instructions given to patient, Instructed on discharge instructions, follow up and referral plans. Prescriptions given X 1, 11:47 Patient left the ED. db Signatures: Dispatcher [employer] EDMS Maria Victoria Ta RN RN aa5 Debora Unger RN RN db Vinny Mata MD MD rt Fide Levy ra3 CHELSEA CANO RN RN dd2 Corrections: (The following items were deleted from the chart) 07:22 07:19 BP 147 / 106; Pulse 84bpm; Resp 20bpm; Spontaneous; Pulse Ox 97% RA; 45.36 kg aa5 Reported; Height 4 ft. 11 in. Reported; BMI: 20.2; aa5
[2023-12-07 11:50] VITALS: TEMP 98.3
[2023-12-07 11:51] VITALS: BP 131/80; O2SAT 96
== END 2023-12-07 11:47 | disposition home or self-care (01) ==
LOC: ER 07:08
DX: R10.30 Lower abdominal pain, unspecified (principal); R10.9 Unspecified abdominal pain; R11.0 Nausea; Z72.0 Tobacco use
CPT/HCPCS: 96361; 85025; 81001; 36415; 81025; 83690; 80053; 74177; 76830; 96375; 96374; 99284; Q9967; J2765; J1200; J2405; J7030

== ENCOUNTER 2024-06-18 18:30 | Emergency (ER) | payer OTHER, SELFPAY ==
[2024-06-18] MEDS ORDERED: HYDROCODONE/APAP 7.5/325 MG TAB ONE (19:24)
--- NOTE | 2024-06-18 20:07 | RAD REPORT ---
EXAM: XR RIGHT HAND HISTORY: Pain. PAIN COMPARISON: None TECHNIQUE: Multiple projections of the right hand submitted. FINDINGS: Soft tissue swelling is seen along the dorsum of the hand. Soft tissue air is also present. . No radiopaque foreign body. No fracture appreciated.
[2024-06-18] MEDS ORDERED: LIDOCAINE 1% 20 ML MDV ONE (23:01)
--- NOTE | 2024-06-18 23:30 | ER ---
Nurse's Notes [facility] Name: Jason Garcia Age: 38 yrs Sex: Female : 1985 Arrival Date: 06/18/2024 Time: 18:30 Bed 6 Private MD: Diagnosis: Bitten by dog Presentation: 06/18 19:12 Chief complaint: Patient states: WAS WALKING DOG ON LEASH WHEN NEIGHBORS DOGS ATTACKED dd2 AND PT BIT DURING THE ALTERCATION ON THE TOP OF THE RIGHT HAND AND RT SMALL FINGER. Coronavirus screen: At this time, the client does not indicate any symptoms associated with coronavirus-19. Ebola Screen: No symptoms or risks identified at this time. Initial Sepsis Screen: Does the patient meet any 2 criteria? No. Patient's initial sepsis screen is negative. Does the patient have a suspected source of infection? No. Patient's initial sepsis screen is negative. Risk Assessment: Do you want to hurt yourself or someone else? Patient reports no desire to harm self or others. Onset of symptoms was June 18, 2024. 19:12 Method Of Arrival: Ambulatory dd2 19:12 Acuity: MONICA 3 dd2 Triage Assessment: 19:14 Bite description: bite sustained to dorsum of right hand, MEDIAL AND LATERAL ASPECT OF dd2 RT 5TH FINGER is from animal, by a dog, animal information: vaccination(s) is unknown, was sustained 1-2 hours ago. General: Appears in no apparent distress. uncomfortable, Behavior is cooperative, appropriate for age, crying. Pain: Complains of pain in right hand. EENT: No deficits noted. No signs and/or symptoms were reported regarding the EENT system. Neuro: No deficits noted. Level of Consciousness is awake, alert, obeys commands, Oriented to person, place, time, situation, Appropriate for age. Cardiovascular: No deficits noted. Patient's skin is warm and dry. Respiratory: No deficits noted. Airway is patent Respiratory effort is even, unlabored, Respiratory pattern is regular, symmetrical. GI: No deficits noted. No signs and/or symptoms were reported involving the gastrointestinal system. : No deficits noted. No signs and/or symptoms were reported regarding the genitourinary system. Derm: Wound noted right hand, MEDIAL AND LATERAL ASPECT OF RT 5TH FINGER Reports pain that is 10 out of 10 on a pain scale. Musculoskeletal: Circulation, motion, and sensation intact. Range of motion: intact in all extremities. Injury Description: Bite sustained to dorsum of right hand, MEDIAL AND LATERAL ASPECT OF RT 5TH FINGER caused by a dog, is from animal. MEDICAL OFFICER: 19:14 LMP N/A - control method, Not dd2 Historical: - Allergies: 19:14 No Known Allergies; dd2 - PMHx: 19:14 acute renal failure; Bipolar disorder; dd2 - PSHx: 19:14 None; dd2 - Immunization history:: Adult Immunizations up to date, Last tetanus immunization: up to date. - Infectious Disease History:: Denies. - Social history:: Smoking status: Patient reports the use of cigarette tobacco products, smokes one pack cigarettes per day. Screenin:19 [facility] ED Fall Risk Assessment (Adult) History of falling in the last 3 months, dd2 including since admission No falls in past 3 months (0 pts) Confusion or Disorientation No (0 pts) Intoxicated or Sedated No (0 pts) Impaired Gait No (0 pts) Mobility Assist Device Used No (0 pt) Altered Elimination No (0 pt) Score/Fall Risk Level 0 - 2 = Low Risk Oriented to surroundings, Maintained a safe environment, Educated pt \T\ family on fall prevention, incl call for assistance when getting out of bed, Assessed \T\ reinforced patient's understanding of fall precautions, Hourly rounding (assess needs \T\ fall precautionary measures) done. Abuse screen: Denies threats or abuse. Denies injuries from another. Nutritional screening: No deficits noted. Tuberculosis screening: No symptoms or risk factors identified. Assessment: 19:19 Reassessment: SEE TRIAGE ASSESSMENT FOR FULL ASSESSMENT. dd2 23:48 Derm: Skin PUNCTURE WOUNDS. dd2 23:49 Derm: Skin is pink, warm \T\ dry. dd2 Vital Signs: 19:12 BP 133 / 85; Pulse 99; Resp 17; Temp 98.4; Pulse Ox 100% on R/A; Weight 52.16 kg; dd2 Height 4 ft. 11 in. ; Pain 10/10; 20:30 BP 149 / 94; Pulse 89; Resp 16; Pulse Ox 100% on R/A; dd2 23:35 BP 136 / 84; Pulse 81; Resp 16; Pulse Ox 98% on R/A; dd2 19:12 Body Mass Index 23.23 (52.16 kg, 149.86 cm) dd2 19:12 Pain Scale: Adult dd2 [place] Coma Score: 19:19 Eye Response: spontaneous(4). Motor Response: obeys commands(6). Verbal Response: dd2 oriented(5). Total: 15. ED Course: 18:33 Patient arrived in ED. cj3 19:04 CHELSEA CANO RN is Primary Nurse. dd2 19:06 Guerline Allen FNP-C is [facility]. kb 19:06 Favian Wei MD is Attending Physician. kb 19:14 Triage completed. dd2 19:14 Arm band placed on right wrist. dd2 19:19 Patient has correct armband on for positive identification. Bed in low position. Call dd2 light in reach. Side rails up X 1. Client placed on continuous cardiac and pulse oximetry monitoring. NIBP monitoring applied. Door closed. Noise minimized. Pillow given. Ice pack to injury. Verbal reassurance given. 19:19 Patient maintains SpO2 saturation greater than 95% on room air. dd2 20:02 Hand Right 3 View XRAY In Process Unspecified. EDMS 23:47 Assist provider with laceration repair on palmar aspect of middle phalanx of right dd2 little finger and dorsum of right hand using sutures. Set up tray. Performed by Guerline FISHER Patient tolerated well. Patient did not have IV access during this emergency room visit. 23:48 Provided Education on: D/C EDUCATION. dd2 Administered Medications: 19:32 Drug: Hydrocodone-Acetaminophen PO (7.5 mg-325 mg) 1 tabs PO once Route: PO; dd2 20:02 Follow up: Response: No adverse reaction dd2 20:05 Follow up: Response: No adverse reaction dd2 23:28 CANCELLED (Physician Discretion): boostrix tdap0.5 ml IM once; as a single dose kb 23:28 Drug: Lidocaine Infiltration (1 %) 1 vials 20 ml Infiltration once; to bedside Volume: kb 20 ml; Route: Infiltration; 23:46 Follow up: Response: No adverse reaction dd2 23:46 Drug: Amoxicillin-Clavulanate PO 875 mg PO once Route: PO; dd2 23:46 Follow up: Response: Medication administered at discharge. dd2 Medication: 19:19 VIS not applicable for this client. dd2 Outcome: 23:29 Discharge ordered by MD. corrales 23:48 Discharged to home ambulatory, dd2 23:48 Condition: stable 23:48 Discharge instructions given to patient, Instructed on discharge instructions, follow up and referral plans. medication usage, wound care, Demonstrated understanding of instructions, follow-up care, medications, wound care, Prescriptions given X 1, 23:49 Patient left the ED. dd2 Signatures: Dispatcher [employer] EDMS Guerline Allen, WOOD TYPE CUTTER-C CHELSEA Monroy, RN RN dd2 Kristina Alvarez cj3
--- NOTE | 2024-06-18 23:30 | EDPHYS ---
Physician Documentation [facility] Name: Jason Garcia Age: 38 yrs Sex: Female : 1985 Arrival Date: 06/18/2024 Time: 18:30 Bed 6 Private MD: ED Physician Favian Wei HPI: 06/18 23:28 This 38 yrs old Female presents to ER via Ambulatory with complaints of Dog Bite. 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 States she was trying to break up two dogs that were fighting and got bit by a neighbor's dog. DATA SME: 19:14 LMP N/A - control method, Not dd2 Historical: - Allergies: 19:14 No Known Allergies; dd2 - PMHx: 19:14 acute renal failure; Bipolar disorder; dd2 - PSHx: 19:14 None; dd2 - Immunization history:: Adult Immunizations up to date, Last tetanus immunization: up to date. - Infectious Disease History:: Denies. - Social history:: Smoking status: Patient reports the use of cigarette tobacco products, smokes one pack cigarettes per day. ROS: 23:24 Constitutional: As per HPI kb Exam: 23:24 Constitutional: This is a well developed, well nourished patient who is awake, alert, kb and in no acute distress. Head/Face: Normocephalic, atraumatic. ENT: Moist Mucous membranes Cardiovascular: Regular rate Respiratory: Respirations even and unlabored. No increased work of breathing. Talking in full sentences Abdomen/GI: Soft, non-tender. No distention Neuro: Awake and alert, GCS 15, oriented to person, place, time, and situation. 23:24 Musculoskeletal/extremity: Extremities: grossly normal except: noted in the right hand: bite, ecchymosis, pain, swelling, tenderness, ROM: intact in all extremities, Circulation is intact in all extremities. Sensation intact. 23:24 Skin: injury, bite(s), superficial, of the dorsum of right hand and palmar aspect of middle phalanx of right little finger, Vital Signs: 19:12 BP 133 / 85; Pulse 99; Resp 17; Temp 98.4; Pulse Ox 100% on R/A; Weight 52.16 kg; dd2 Height 4 ft. 11 in. ; Pain 10/10; 20:30 BP 149 / 94; Pulse 89; Resp 16; Pulse Ox 100% on R/A; dd2 23:35 BP 136 / 84; Pulse 81; Resp 16; Pulse Ox 98% on R/A; dd2 19:12 Body Mass Index 23.23 (52.16 kg, 149.86 cm) dd2 19:12 Pain Scale: Adult dd2 [place] Coma Score: 19:19 Eye Response: spontaneous(4). Motor Response: obeys commands(6). Verbal Response: dd2 oriented(5). Total: 15. Laceration: 23:25 Wound Repair of 2cm ( 0.8in ) subcutaneous laceration to dorsum of right hand. Linear kb shaped.. Distal neuro/vascular/tendon intact. Anesthesia: Wound infiltrated with 2 mls of 1% lidocaine. Wound prep: Moderate cleansing with hibiclenz by me, Wound irrigation with saline by me. Skin closed with 3 4-0 Prolene using simple sutures and sterile technique. Patient tolerated well. 23:25 Wound Repair of 2cm ( 0.8in ) subcutaneous laceration to dorsum of right hand. Linear kb shaped.. Distal neuro/vascular/tendon intact. Anesthesia: Local anesthetic administered with 2 mls of 1% lidocaine. Wound prep: Moderate cleansing with hibiclenz by me, Wound irrigation with saline by me. Skin closed with 3 4-0 Prolene using simple sutures and sterile technique. Patient tolerated well. 23:25 Wound Repair of 2.5cm ( 1.0in ) subcutaneous laceration to palmar aspect of middle kb phalanx of right little finger. Linear shaped.. Distal neuro/vascular/tendon intact. Anesthesia: Wound infiltrated with 2 mls of 1% lidocaine. Wound prep: Extensive cleansing with hibiclenz by me, Wound irrigation with saline by me. Skin closed with 4 4-0 Prolene using simple sutures and sterile technique. Patient tolerated well. MDM: 19:06 Medical Screening Exam initiated kb 23:27 Differential diagnosis: superficial laceration, tendon injury, vascular injury, kb fracture. Data reviewed: vital signs, nurses notes. Counseling: I had a detailed discussion with the patient and/or guardian regarding the historical points, exam findings, and any diagnostic results supporting the discharge/admit diagnosis, radiology results, the need for outpatient follow up, a family practitioner, to return to the emergency department if symptoms worsen or persist or if there are any questions or concerns that arise at home. 06/18 19:09 Order name: Hand Right 3 View XRAY; Complete Time: 20:12 kb 06/18 23:28 Order name: Dressing - Wound; Complete Time: 23:28 kb 06/18 23:28 Order name: Gloves, Sterile; Complete Time: 23:28 kb 06/18 23:28 Order name: Prolene, Sutures; Complete Time: 23:28 kb 06/18 23:28 Order name: Setup Suture Tray; Complete Time: 23:28 kb 06/18 23:29 Order name: Ice pack; Complete Time: 23:34 kb Administered Medications: 19:32 Drug: Hydrocodone-Acetaminophen PO (7.5 mg-325 mg) 1 tabs PO once Route: PO; dd2 20:02 Follow up: Response: No adverse reaction dd2 20:05 Follow up: Response: No adverse reaction dd2 23:28 CANCELLED (Physician Discretion): boostrix tdap0.5 ml IM once; as a single dose kb 23:28 Drug: Lidocaine Infiltration (1 %) 1 vials 20 ml Infiltration once; to bedside Volume: kb 20 ml; Route: Infiltration; 23:46 Follow up: Response: No adverse reaction dd2 23:46 Drug: Amoxicillin-Clavulanate PO 875 mg PO once Route: PO; dd2 23:46 Follow up: Response: Medication administered at discharge. dd2 Disposition Summary: 06/18/24 23:29 Discharge Ordered Notes: Location: Home kb Condition: Stable kb Diagnosis - Bitten by dog kb Followup: kb - With: Emergency Department - When: As needed - Reason: Worsening of condition Followup: kb - With: Private Physician - When: 2 - 3 days - Reason: Recheck today's complaints, Continuance of care, Re-evaluation by your physician Discharge Instructions: - Discharge Summary Sheet kb - Animal Bite, Adult, [id number] kb Forms: - Medication Reconciliation Form kb - Antibiotic Education kb - Prescription Opioid Use kb - Patient Portal Instructions kb - Leadership Thank You Letter kb Prescriptions: - Augmentin 875-125 mg Oral Tablet - take 1 tablet ORAL route every 12 hours for 10 days; 20 tablet; Refills: 0, kb Product Selection Permitted Signatures: Dispatcher [employer] EDMS Guerline Allen, PROVIDER NETWORK MGR-C CHELSEA Monroy, RN RN dd2 Corrections: (The following items were deleted from the chart) 19:09 19:09 Hand Right 3 View+RAD.RAD.BRZ ordered. LANE EDMS 23:28 23:28 Boostrix Tdap IM 0.5 ml IM once; as a single dose ordered. kb kb
[2024-06-18] MEDS ORDERED: AMOX/K CLAV 875 MG TAB ONE (23:41)
[2024-06-19 00:14] VITALS: TEMP 98.4
[2024-06-19 00:17] VITALS: BP 136/84; O2SAT 98
== END 2024-06-18 23:49 | disposition home or self-care (01) ==
LOC: ER 18:30
DX: S61.411A Laceration without foreign body of right hand, initial encounter (principal); S61.216A Laceration without foreign body of right little finger without damage to nail, initial encounter; W54.0XXA Bitten by dog, initial encounter; F17.210 Nicotine dependence, cigarettes, uncomplicated
CPT/HCPCS: 12041; 99284; J2003

== ENCOUNTER 2024-07-27 01:09 | Emergency (ER) | payer OTHER, SELFPAY ==
[2024-07-27] MEDS ORDERED: METOCLOPRAMIDE 10 MG/2mL INJ ONE (01:33)
[2024-07-27] MEDS ORDERED: KETOROLAC 30 MG/ML INJ ONE (01:33)
[2024-07-27] MEDS ORDERED: DIPHENHYDRAMINE 50 MG/ML VIAL ONE (01:33)
[2024-07-27] MEDS ORDERED: NA CHLORIDE 0.9% 500 ML ONE (01:33)
[2024-07-27 02:04] LABS: Anion Gap 8.5 mEq/L (5.0-15.0); Potassium 3.5 mEq/L (3.5-5.1)
--- NOTE | 2024-07-27 02:39 | ER ---
Nurse's Notes [facility] Name: Jason Garcia Age: 38 yrs Sex: Female : 1985 Arrival Date: 07/27/2024 Time: 01:09 Bed 19 Private MD: Diagnosis: Migraine without aura, intractable Presentation: 07/27 01:25 Chief complaint: Patient states: migraine X3 days. Coronavirus screen: Client denies lg3 travel out of the [place] in the last 14 days. At this time, the client does not indicate any symptoms associated with coronavirus-19. Ebola Screen: No symptoms or risks identified at this time. Initial Sepsis Screen: Does the patient meet any 2 criteria? No. Patient's initial sepsis screen is negative. Does the patient have a suspected source of infection? No. Patient's initial sepsis screen is negative. Risk Assessment: Do you want to hurt yourself or someone else? Patient reports no desire to harm self or others. Onset of symptoms was July 24, 2024. 01:25 Method Of Arrival: Ambulatory 3 01:25 Acuity: MONICA 3 lg3 Triage Assessment: 01:26 Headache History: The patient has had previous headaches and this one is similar to lg3 previous episodes, and this one is more severe than previous episodes. General: Appears in no apparent distress. uncomfortable, Behavior is calm, cooperative. Pain: Complains of pain in head Pain currently is 10 out of 10 on a pain scale. Pain began 2-3 days ago. Also complains of nausea, photophobia. EENT: No deficits noted. No signs and/or symptoms were reported regarding the EENT system. Neuro: No deficits noted. [place] Agitation-Sedation Scale (RASS): 0 - Alert and Calm Level of Consciousness is awake, alert, obeys commands, Oriented to person, place, time, situation, Reports headache occipital area. Cardiovascular: No deficits noted. Denies chest pain, shortness of breath, Capillary refill < 3 seconds Clubbing of nail beds is absent JVD is absent Patient's skin is warm and dry. Respiratory: No deficits noted. Airway is patent Respiratory effort is even, unlabored, Respiratory pattern is regular, symmetrical. GI: No deficits noted. Reports nausea. : No deficits noted. No signs and/or symptoms were reported regarding the genitourinary system. Derm: No deficits noted. No signs and/or symptoms reported regarding the dermatologic system. Skin is intact, is healthy with good turgor, Skin is dry, Skin is normal, Skin temperature is warm. Musculoskeletal: No deficits noted. No signs and/or symptoms reported regarding the musculoskeletal system. Circulation, motion, and sensation intact. Range of motion: intact in all extremities. 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 - Infectious Disease History:: Denies. - Social history:: Smoking status: Patient reports the use of cigarette tobacco products, smokes one pack cigarettes per day. Patient uses alcohol, occasionally. street drugs, marijuana, Methamphetamine (Meth). - Family history:: not pertinent. Screenin:41 [facility] ED Fall Risk Assessment (Adult) History of falling in the last 3 months, al5 including since admission No falls in past 3 months (0 pts) Confusion or Disorientation No (0 pts) Intoxicated or Sedated No (0 pts) Impaired Gait No (0 pts) Mobility Assist Device Used No (0 pt) Altered Elimination No (0 pt) Score/Fall Risk Level 0 - 2 = Low Risk Oriented to surroundings, Maintained a safe environment, Hourly rounding (assess needs \T\ fall precautionary measures) done. Abuse screen: Denies threats or abuse. Denies injuries from another. Nutritional screening: No deficits noted. Tuberculosis screening: No symptoms or risk factors identified. Assessment: 01:42 General: Appears in no apparent distress. comfortable, Behavior is calm, cooperative. al5 Pain: Complains of pain in head. Neuro: Level of Consciousness is awake, alert, obeys commands, Oriented to person, place, time, situation. Cardiovascular: Capillary refill < 3 seconds Patient's skin is warm and dry. Respiratory: Airway is patent Respiratory effort is even, unlabored, Respiratory pattern is regular, symmetrical. GI: No signs and/or symptoms were reported involving the gastrointestinal system. : No signs and/or symptoms were reported regarding the genitourinary system. EENT: No signs and/or symptoms were reported regarding the EENT system. Derm: Skin is intact, is healthy with good turgor, Skin is pink, warm \T\ dry. normal. Musculoskeletal: No signs and/or symptoms reported regarding the musculoskeletal system. 02:31 Reassessment: Patient appears in no apparent distress at this time. Patient and/or al5 family updated on plan of care and expected duration. Pain level reassessed. Patient is alert, oriented x 3, equal unlabored respirations, skin warm/dry/pink. Patient states feeling better. Patient states symptoms have improved. Vital Signs: 01:25 BP 137 / 87; Pulse 82; Resp 16 S; Temp 98.3(O); Pulse Ox 100% on R/A; Weight 49.9 kg lg3 (R); Height 4 ft. 11 in. (R); Pain 10/10; 01:30 BP 123 / 68; Pulse 78; Resp 16; Pulse Ox 100% ; al5 02:00 BP 117 / 88; Pulse 79; Resp 16; Pulse Ox 100% ; al5 02:30 BP 120 / 86; Pulse 74; Resp 16; Pulse Ox 100% ; al5 03:00 BP 121 / 72; Pulse 72; Resp 16; Pulse Ox 99% ; al5 01:25 Body Mass Index 22.22 (49.90 kg, 149.86 cm) lg3 01:25 Pain Scale: Adult lg3 [place] Coma Score: 04:11 Eye Response: spontaneous(4). Motor Response: obeys commands(6). Verbal Response: sp4 oriented(5). Total: 15. 04:12 Eye Response: spontaneous(4). Motor Response: obeys commands(6). Verbal Response: sp4 oriented(5). Total: 15. ED Course: 01:12 Patient arrived in ED. jj6 01:14 Dilshad Cummings MD is Attending Physician. sp4 01:22 Ebony Ribeiro RN is Primary Nurse. al5 01:26 Triage completed. lg3 01:26 Arm band placed on right wrist. lg3 01:41 Patient has correct armband on for positive identification. Bed in low position. Call al5 light in reach. Side rails up X 1. Provided Education on: plan of care. 01:41 No provider procedures requiring assistance completed. Inserted saline lock: 20 gauge al5 in right antecubital area, using aseptic technique. Blood collected. Flushed with 10 mL NS. 02:37 Milton Ingram DO is Referral Physician. sp4 03:10 IV discontinued, intact, bleeding controlled, No redness/swelling at site. Pressure al5 dressing applied. Administered Medications: 01:40 Drug: metoCLOPramide IVP 10 mg IVP once; over 1 to 2 minutes Route: IVP; Site: right al5 antecubital; 02:31 Follow up: Response: No adverse reaction; Pain is decreased al5 01:41 Drug: diphenhydrAMINE IVP 25 mg IVP once Route: IVP; Site: right antecubital; al5 02:32 Follow up: Response: No adverse reaction; Pain is decreased al5 01:41 Drug: NS 0.9% IV 500 ml 500 ml IV at 1 bolus once; to be given as a bolus over 30 al5 minutes Volume: 500 ml; Route: IV; Rate: 1 bolus; Site: right antecubital; 02:32 Follow up: Response: No adverse reaction; IV Status: Completed infusion; IV Intake: al5 500ml 01:41 Drug: Ketorolac IVP 30 mg IVP once Route: IVP; Site: right antecubital; al5 02:32 Follow up: Response: No adverse reaction; Pain is decreased al5 Medication: 01:42 VIS not applicable for this client. al5 Intake: 02:32 IV: 500ml; Total: 500ml. al5 Outcome: 02:38 Discharge ordered by . sp4 03:10 Discharged to home ambulatory, with significant other, al5 03:10 Condition: good 03:10 Discharge instructions given to patient, Instructed on discharge instructions, follow up and referral plans. medication usage, Demonstrated understanding of instructions, follow-up care, medications, Prescriptions given X 1, 03:10 Patient left the ED. al5 Signatures: Mei Almaraz RN RN lg3 Paula Thompson6 Dilshad Cummings MD MD sp4 Ebony Ribeiro RN RN al5
--- NOTE | 2024-07-27 02:39 | EDPHYS ---
Physician Documentation [facility] Name: Jason Garcia Age: 38 yrs Sex: Female : 1985 Arrival Date: 07/27/2024 Time: 01:09 Bed 19 Private MD: ED Physician Dilshad Cummings HPI: 07/27 01:14 This 38 yrs old Female presents to ER via Unassigned with complaints of sp4 Headache. 04:11 Patient presents with moderate posterior headache. 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 - Infectious Disease History:: Denies. - Social history:: Smoking status: Patient reports the use of cigarette tobacco products, smokes one pack cigarettes per day. Patient uses alcohol, occasionally. street drugs, marijuana, Methamphetamine (Meth). - Family history:: not pertinent. ROS: 04:11 Constitutional: Negative for fever, chills, and weight loss, positive moderate sp4 posterior headache, positive nausea 04:11 All other systems are negative, Exam: 04:11 Constitutional: This is a well developed, well nourished patient who is awake, alert, sp4 and in no acute distress. Head/Face: Normocephalic, atraumatic. Eyes: Pupils equal round and reactive to light, extra-ocular motions intact. Lids and lashes normal. Conjunctiva and sclera are not injected. Cornea within normal limits. Periorbital areas with no swelling, redness, or edema. ENT: Nares patent. No nasal discharge, no septal abnormalities noted. Tympanic membranes are normal and external auditory canals are clear. Oropharynx with no redness, swelling, or masses, exudates, or evidence of obstruction, uvula midline. Mucous membranes moist. Neck: Trachea midline, no thyromegaly or masses palpated, and no cervical lymphadenopathy. Supple, full range of motion without nuchal rigidity, or vertebral point tenderness. Chest/axilla: Normal chest wall appearance and motion. Nontender with no deformity. No lesions are appreciated. Cardiovascular: Regular rate and rhythm with a normal S1 and S2. No gallops, murmurs, or rubs. Normal PMI, no JVD. No pulse deficits. Respiratory: Lungs have equal breath sounds bilaterally, clear to auscultation and percussion. No rales, rhonchi or wheezes noted. No increased work of breathing, no retractions or nasal flaring. Abdomen/GI: Soft, with normal bowel sounds. No distension or tympany. No guarding or rebound. No evidence of tenderness throughout. Back: No spinal tenderness. No costovertebral tenderness. Skin: Warm, dry with normal turgor. Normal color with no rashes, no lesions, and no evidence of cellulitis. MS/ Extremity: Pulses equal, no cyanosis. Neurovascular intact. Full, normal range of motion. Neuro: Awake and alert, GCS 15, oriented to person, place, time, and situation. Cranial nerves II-XII grossly intact. Motor strength 5/5 in all extremities. Sensory grossly intact. Psych: Awake, alert, with orientation to person, place and time. Behavior, mood, and affect are within normal limits Vital Signs: 01:25 BP 137 / 87; Pulse 82; Resp 16 S; Temp 98.3(O); Pulse Ox 100% on R/A; Weight 49.9 kg lg3 (R); Height 4 ft. 11 in. (R); Pain 10/10; 01:30 BP 123 / 68; Pulse 78; Resp 16; Pulse Ox 100% ; al5 02:00 BP 117 / 88; Pulse 79; Resp 16; Pulse Ox 100% ; al5 02:30 BP 120 / 86; Pulse 74; Resp 16; Pulse Ox 100% ; al5 03:00 BP 121 / 72; Pulse 72; Resp 16; Pulse Ox 99% ; al5 01:25 Body Mass Index 22.22 (49.90 kg, 149.86 cm) lg3 01:25 Pain Scale: Adult lg3 Sara Coma Score: 04:11 Eye Response: spontaneous(4). Motor Response: obeys commands(6). Verbal Response: sp4 oriented(5). Total: 15. 04:12 Eye Response: spontaneous(4). Motor Response: obeys commands(6). Verbal Response: sp4 oriented(5). Total: 15. MDM: 01:19 Medical Screening Exam initiated sp4 04:12 Differential diagnosis: cluster headache, migraine, sinusitis, tension headache, sp4 vasomotor headache. Data reviewed: vital signs, nurses notes, lab test result(s). ED course: Patient resolved headache after the medications. Patient history of migraines. Will prescribe Fioricet as needed headache. 07/27 01:18 Order name: BMP; Complete Time: 02:09 sp4 07/27 01:19 Order name: Test, Serum; Complete Time: 03:04 sp4 07/27 01:18 Order name: Saline Lock; Complete Time: 01:31 sp4 Administered Medications: 01:40 Drug: metoCLOPramide IVP 10 mg IVP once; over 1 to 2 minutes Route: IVP; Site: right al5 antecubital; 02:31 Follow up: Response: No adverse reaction; Pain is decreased al5 01:41 Drug: diphenhydrAMINE IVP 25 mg IVP once Route: IVP; Site: right antecubital; al5 02:32 Follow up: Response: No adverse reaction; Pain is decreased al5 01:41 Drug: NS 0.9% IV 500 ml 500 ml IV at 1 bolus once; to be given as a bolus over 30 al5 minutes Volume: 500 ml; Route: IV; Rate: 1 bolus; Site: right antecubital; 02:32 Follow up: Response: No adverse reaction; IV Status: Completed infusion; IV Intake: al5 500ml 01:41 Drug: Ketorolac IVP 30 mg IVP once Route: IVP; Site: right antecubital; al5 02:32 Follow up: Response: No adverse reaction; Pain is decreased al5 Disposition: 20:05 Chart complete. sp4 Disposition Summary: 07/27/24 02:38 Discharge Ordered Notes: Location: Home sp4 Problem: new sp4 Symptoms: have improved sp4 Condition: Stable sp4 Diagnosis - Migraine without aura, intractable sp4 Followup: sp4 - With: Milton Ingram DO - When: 7 - 10 days - Reason: Recheck today's complaints Discharge Instructions: - Discharge Summary Sheet sp4 - Migraine Headache sp4 Forms: - Patient Portal Instructions sp4 Prescriptions: - Fioricet 50-300-40 mg Oral capsule - take 1 capsule ORAL route every 8 hours PRN headache; 30 capsule; Refills: 0, sp4 Product Selection Permitted - ondansetron 8 mg Oral Tablet,disintegrating - take 1 tablet ORAL route every 8 hours PRN nausea; 30 tablet; Refills: 0, sp4 Product Selection Permitted Signatures: Dispatcher [employer] Mei Booth RN RN lg3 Dilshad Cummings MD MD sp4 Ebony Ribeiro RN RN al5
[2024-07-27 03:15] VITALS: TEMP 98.3
[2024-07-27 03:21] VITALS: BP 121/72; O2SAT 99
== END 2024-07-27 03:10 | disposition home or self-care (01) ==
LOC: ER 01:09
DX: G43.019 Migraine without aura, intractable, without status migrainosus (principal)
CPT/HCPCS: 36415; 80048; 84703; 96361; 96374; 96375; 99284; J1200; J2765; J7040